=== PATIENT | male | born 1965 | race Caucasian/White ===

== ENCOUNTER 2019-04-30 11:23 | Inpatient (IN) ==
[2019-04-25 12:29] LABS: INR 0.8 (0.9-1.1); Prothrombin Time 11.6 sec (11.9-14.5)
[2019-04-25 12:36] LABS: Basophils # (Auto) 0 K/mcL (0.0-0.3); Basophils % (Auto) 0.4 % (0.0-2.0); Eosinophils # (Auto) 0.1 K/mcL (0.0-0.7); Eosinophils % (Auto) 0.8 % (0.0-7.0); Granulocytes % (Auto) 81.1 % (38.0-78.0); Hematocrit 40.1 % (41.0-55.0); Hemoglobin 13.4 g/dL (13.5-16.5); Lymphocytes # (Auto) 1.1 K/mcL (1.5-4.8); Lymphocytes % (Auto) 12.2 % (15.5-49.0); Mean Corpuscular HGB Conc 33.5 g/dL (31.0-36.0); Mean Platelet Volume 7.3 fL (7.4-10.4); Monocytes # (Auto) 0.5 K/mcL (0.1-0.9); Monocytes % (Auto) 5.5 % (1.0-12.0); Platelet Count 233 K/mcL (140-440); RBC 4.13 M/mcL (4.50-5.90); Red Cell Distribution Width 13.1 % (11.5-14.5); WBC 9.1 K/mcL (4.5-11.0)
[2019-04-25 12:44] LABS: Appearance,Urine CLEAR; Bilirubin,Urine NEG (NEG); Color,Urine YELLOW; Glucose,Urine (UA) NEGATIVE (NEG); Ketones,Urine NEG (NEG); Leukocyte Esterase,Urine NEG /uL (NEG); Nitrate,Urine NEG (NEG); Protein,Urine NEG (NEG); Specific Gravity,Urine 1.012 (1.000-1.035); Urine Blood NEG mg/dL (<0.03); Urobilinogen,Urine NEG (NEG)
[2019-04-25 12:46] LABS: Blood Urea Nitrogen 23 mg/dl (6-20); Calcium 10.1 mg/dl (8.6-10.4); Carbon Dioxide 26 mmol/L (22-30); Chloride 103 mmol/L (96-108); Glomerular Filtration Rate 57; Glucose 109 mg/dL (70-105)
[~2019-04-30 11:23] MED LIST: 0.9 % SODIUM CHLORIDE 9 ML, KETOROLAC 30 MG, ROPIVACAINE HCL/PF 49.5 ML, EPINEPHrine 0.... IJ SCH; ACETAMINOPHEN 500 MG TABLET PO SCH; CELECOXIB 200 MG CAPSULE PO SCH; GABAPENTIN 300 MG CAPSULE PO SCH; ceFAZolin 2 GM in DEXTROSE 5% IN WATER 50 ML IV SCH; oxyCODONE 10 MG TAB.ER.12H PO SCH
[2019-04-30] MEDS ORDERED: SCOPOLAMINE 1 PATCH PATCH TOPICAL PRN (11:30)
[2019-04-30] MEDS ORDERED: IPRATROPIUM/ALBUTEROL 3 ML AMPUL.NEB NEB PRN ×2 (11:30→14:50)
[2019-04-30] MEDS ORDERED: ROPIVACAINE HCL/PF 30 ML VIAL IJ ONE (14:00)
[2019-04-30] MEDS ORDERED: DEXAMETHASONE 10 MG/ML VIAL IV ONE (14:00)
[2019-04-30] MEDS ORDERED: TRANEXAMIC ACID 1,000 MG/10 ML VIAL IV ONE ×2 (14:00→14:15)
[2019-04-30] MEDS ORDERED: MIDAZOLAM 2 MG/2 ML VIAL IV ONE (14:00)
[2019-04-30] MEDS ORDERED: KETOROLAC 30 MG/ML VIAL IV ONE (14:00)
[2019-04-30] MEDS ORDERED: PHENYLEPHRINE 10 MG/ML VIAL IV ONE (14:00)
[2019-04-30] MEDS ORDERED: ONDANSETRON 4 MG/2 ML VIAL IV ONE (14:00)
[2019-04-30] MEDS ORDERED: ETOMIDATE 20 MG/10 ML VIAL IV ONE (14:00)
[2019-04-30] MEDS ORDERED: LIDOCAINE HCL/PF 100 MG/5 ML SYRINGE IV ONE (14:00)
[2019-04-30] MEDS ORDERED: fentaNYL 100 MCG/2 ML VIAL IV ONE (14:00)
[2019-04-30] MEDS ORDERED: SUCCINYLCHOLINE 20 MG/ML ML IV ONE (14:00)
[2019-04-30] MEDS ORDERED: KETAMINE 100 MG/ML ML IV ONE (14:00)
[2019-04-30] MEDS ORDERED: GLYCOPYRROLATE 0.2 MG/ML VIAL IV ONE (14:00)
[2019-04-30] MEDS ORDERED: BENZOCAINE/MENTHOL 1 LOZENGE PO PRN ×2 (14:15→14:50)
[2019-04-30] MEDS ORDERED: FLEETS ADULT ENEMA PR PRN (14:15)
[2019-04-30] MEDS ORDERED: ACETAMINOPHEN 325 MG TABLET PO PRN (14:15)
[2019-04-30] MEDS ORDERED: KETOROLAC 15 MG/ML VIAL IV PRN (14:15)
[2019-04-30] MEDS ORDERED: HYDROmorphone 2 MG/ML VIAL IV PRN ×2 (14:15→14:50)
[2019-04-30] MEDS ORDERED: TEMAZEPAM 15 MG CAPSULE PO PRN (14:15)
[2019-04-30] MEDS ORDERED: MAGNESIUM HYDROXIDE 30 ML ORAL.SUSP PO PRN (14:15)
[2019-04-30] MEDS ORDERED: ONDANSETRON 4 MG/2 ML VIAL IV PRN (14:15)
[2019-04-30] MEDS ORDERED: POLYETHYLENE GLYCOL 3350 17 GM PACKET PO PRN (14:15)
[2019-04-30] MEDS ORDERED: BISACODYL 10 MG SUPP.RECT PR PRN (14:15)
[2019-04-30] MEDS ORDERED: DOCUSATE SODIUM 250 MG PO PRN (14:18)
[2019-04-30] MEDS ORDERED: oxyCODONE HCL 5 MG TABLET PO PRN (14:18)
[2019-04-30] MEDS ORDERED: GENTAMICIN SULFATE 800 MG/20 ML VIAL IR ONE (14:41)
[2019-04-30] MEDS ORDERED: PROMETHAZINE 25 MG/ML VIAL IM PRN (14:50)
[2019-04-30] MEDS ORDERED: MEPERIDINE 25 MG/ML SYRINGE IV PRN (14:50)
[2019-04-30] MEDS ORDERED: LACTATED RINGERS 250 ML IV PRN (14:50)
[2019-04-30] MEDS ORDERED: METOPROLOL TARTRATE 5 MG/5 ML VIAL IV PRN (14:50)
[2019-04-30] MEDS ORDERED: MEPERIDINE 50 MG/ML INJECTION IM PRN (14:50)
[2019-04-30] MEDS ORDERED: FLUMAZENIL 0.1 MG/ML ML IV PRN (14:50)
[2019-04-30] MEDS ORDERED: METHOCARBAMOL 1,000 MG/10 ML VIAL IV PRN (14:50)
[2019-04-30] MEDS ORDERED: LABETALOL 5 MG/ML ML IV PRN (14:50)
[2019-04-30] MEDS ORDERED: NALOXONE HCL 0.4 MG/ML VIAL IV PRN (14:50)
[2019-04-30] MEDS ORDERED: LACTATED RINGERS 1,000 ML IV SCH (15:00)
--- NOTE | 2019-04-30 15:17 | Brief Operative Note ---
Date of procedure: 04/30/19 Pre-op diagnosis: left shoulder djd severe Post-op diagnosis: same Procedure: left total shoulder reverse Grafts/Implants: Yes Anesthesia: GETA Surgeon: Sylvester Garcia Manager Eligibility: Praveen Zarate Estimated blood loss (cc): 100 Specimens Removed/Pathology: none sent Condition: stable Disposition: PACU
--- NOTE | 2019-04-30 15:36 | Operative Note ---
DATE OF OPERATION: 04/30/2019 PREOPERATIVE DIAGNOSIS: Left shoulder rotator cuff arthropathy, severe. POSTOPERATIVE DIAGNOSIS: Left shoulder rotator cuff arthropathy, severe. PROCEDURE: Left reverse total shoulder. SURGEON: Sylvester Garcia M.D. PAPER TWISTER: Praveen Zarate PA-C. The PA's assistance was required for the safe and efficient completion of the entire case. This provider's expertise and technical skill were required throughout the case. The PA assisted with preoperative coordination, intraoperative retraction, wound closure, dressing and splint application, as well as postoperative documentation and care coordination. ANESTHESIA: General LMA anesthesia. COMPLICATIONS: None. DESCRIPTION OF PROCEDURE: The patient was brought to the operating room. Preop consent form was confirmed by initials, consent form, and x-rays. Once confirmed and timeout performed, preop antibiotics and tranexamic acid given. We then made a deltopectoral approach to the arm. Through this we evaluated all the structures of the shoulder. The subscap was intact. Supraspinatus and infraspinatus were torn and teres minor was intact. The biceps tendon had been torn and a severe large rotator cuff retracted tear. With these findings we proceeded with the case, releasing the subscap, dislocated the humeral head anteriorly, and then made our neck cut. This was subluxed posteriorly and then we reamed the acetabulum after removing the labrum. We reamed up to the size for a 40 mm ball, releasing the capsule in a 360-degree capsular release. We placed a 32 mm central screw. Peripheral screws measured 36, 32, and 32. All fixed and locked into the plate very nicely. We placed a 36 mm glenosphere with 2 mm of offset, 2 mm of eccentricity. Once this was done, we then prepared the humeral side. This was broached up for 11 stem. The trial confirmed that this was equally stable. We then placed a cementless stem with antibiotic impregnated cement distally into the stem, porous ingrowth proximally, and then we placed a standard thickness poly. This was reduced, had full range of motion, very stable throughout the arc of motion. We irrigated thoroughly and closed the interval with Stratafix, closed the skin with Stratafix and adhesive closure. A DonJoy sling was fitted and given to the patient. The patient tolerated this well. Blood loss was about 100 mL. RENÉE:lucian Job ID: [id number] Doc ID: [id number] Sylvester Garcia MD
--- NOTE | 2019-04-30 15:43 | Discharge Summary ---
Ortho Discharge - TSA - Patient Instructions Diet: Regular Diet Activity: activity as tolerated, weight bearing as tolerated Total Shoulder Protocol: Leave immobilizer in place except for bathing and ROM. Abduction pillow. Continue to wear sling until seen by physician. Codman Pendulum : These exercises use momentum produced by your body to move your shoulder joint. Bend your knees and shift your weight to your front leg, then back, allowing your arm to swing in the same directions. Using the same technique, alternately shift your weight between your right and left legs, allowing your arm to swing from side to side. These exercises are also performed in counterclockwise and clockwise circular motions. Typically these exercises are performed several times per day, for a set number repetitions or minutes, such as 20 times in a row or 5 minutes at a time. Dressing Care: May shower in 2 days - Follow Up Plan Follow Up Appointments: Praveen Zarate PA-C [Physician Professor Of Floriculture] - 05/15/19 8:10 am Disposition: Home, Self-Care Prognosis: Good Rehab Potential: Good I certify that the patient requires SNF services: No Overall status at discharge: patient is progressing back to baseline - Orders For Discharge Prescriptions: Docusate Sodium [Colace] 100 mg PO BID #60 cap Transmission Status: Pending to [facility] oxyCODONE/APAP [Percocet 5-325 mg] 1 - 2 tab PO Q4HP PRN #75 tab PRN Reason: Pain Level 3-6 Prescription Printed
[2019-04-30] MEDS: fentaNYL 100 MCG/2 ML VIAL IV PRN ×6 (15:49→16:07)
[2019-04-30] MEDS: TACROLIMUS 1 MG CAPSULE PO SCH ×2 (17:56→22:08)
[2019-04-30] MEDS: LACTATED RINGERS 1,000 ML IV SCH ×2 (17:57→23:45)
[2019-04-30] MEDS: lamoTRIgine 100 MG TABLET PO SCH (18:05)
--- NOTE | 2019-04-30 18:37 | XRay Report ---
CLINICAL INFORMATION: Post-Op Total Shoulder COMPARISON: None. FINDINGS: Total shoulder prostheses is anatomically aligned. No osseous abnormality. Soft tissue swelling seen IMPRESSION: Negative Interpreted and Authenticated by: Gopal Patel 04/30/19
[2019-04-30] MEDS ORDERED: PRAVASTATIN 20 MG TABLET PO SCH (21:00)
[2019-04-30] MEDS ORDERED: GABAPENTIN 300 MG CAPSULE PO SCH (21:00)
[2019-04-30] MEDS ORDERED: SIMVASTATIN 10 MG TABLET PO SCH (21:00)
[2019-04-30] MEDS ORDERED: SENNOSIDES 1 TABLET PO SCH (21:00)
[2019-04-30] MEDS: DOCUSATE SODIUM 100 MG CAPSULE PO SCH (22:08)
[2019-04-30] MEDS: morphine 15 MG TAB.SR.12H PO SCH (22:09)
[2019-04-30] MEDS: TAMSULOSIN 0.4 MG CAPSULE PO SCH (22:09)
[2019-04-30] MEDS: ceFAZolin 1 GM VIAL IV SCH (22:09)
[2019-04-30] MEDS: 0.9 % SODIUM CHLORIDE 10 ML SYRINGE IV SCH (22:09)
[2019-04-30] MEDS: MYCOPHENOLATE 250 MG CAPSULE PO SCH (22:53)
[2019-04-30] MEDS: oxyCODONE/APAP 5/325MG TABLET PO PRN (23:42)
[2019-05-01] MEDS: oxyCODONE/APAP 5/325MG TABLET PO PRN ×2 (03:27→10:36)
[2019-05-01] MEDS: ceFAZolin 1 GM VIAL IV SCH (06:08)
[2019-05-01] MEDS: lamoTRIgine 100 MG TABLET PO SCH (06:08)
[2019-05-01] MEDS: 0.9 % SODIUM CHLORIDE 10 ML SYRINGE IV SCH (06:09)
[2019-05-01] MEDS ORDERED: LEVOTHYROXINE 88 MCG TABLET PO SCH (07:30)
[2019-05-01] MEDS ORDERED: predniSONE 5 MG TABLET PO SCH (08:00)
[2019-05-01] MEDS: MYCOPHENOLATE 250 MG CAPSULE PO SCH (08:24)
[2019-05-01] MEDS: TAMSULOSIN 0.4 MG CAPSULE PO SCH (08:24)
[2019-05-01] MEDS: morphine 15 MG TAB.SR.12H PO SCH (08:25)
[2019-05-01] MEDS: DOCUSATE SODIUM 100 MG CAPSULE PO SCH (08:25)
[2019-05-01] MEDS: TACROLIMUS 1 MG CAPSULE PO SCH (08:32)
[2019-05-01] MEDS ORDERED: MULTIVIT,THER IRON,CA,FA & MIN 1 TABLET PO SCH (09:00)
[2019-05-01] MEDS ORDERED: ASCORBIC ACID 500 MG TABLET PO SCH (09:00)
[2019-05-01] MEDS ORDERED: VITAMIN D3 1,000 UNIT TABLET PO SCH (09:00)
[2019-05-01] MEDS ORDERED: FINASTERIDE 5 MG TABLET PO SCH (09:00)
[2019-05-01] MEDS ORDERED: CALCIUM (OYSTER SHELL) 500 MG TABLET PO SCH (09:00)
[2019-05-01] MEDS ORDERED: GABAPENTIN 300 MG CAPSULE PO SCH (09:00)
[2019-05-01] MEDS: LACTATED RINGERS 1,000 ML IV SCH (10:37)
== END 2019-05-01 10:48 | disposition home or self-care (01) | DRG 483 ==
LOC: MEDSUR 11:23
PROVIDERS: ADMIT Orthopaedic Surgery; ATTEND Orthopaedic Surgery

== ENCOUNTER 2019-08-17 04:53 | Inpatient (IN) ==
[2019-08-08 19:22] LABS: Appearance,Urine CLEAR; Bilirubin,Urine NEG (NEG); Color,Urine YELLOW; Culture Indicated,Urine NO; Glucose,Urine (UA) NEGATIVE (NEG); Ketones,Urine NEG (NEG); Leukocyte Esterase,Urine NEG /uL (NEG); Nitrate,Urine NEG (NEG); Protein,Urine NEG (NEG); Specific Gravity,Urine 1.015 (1.000-1.035); Urine Blood NEG mg/dL (<0.03); Urobilinogen,Urine NEG (NEG)
[2019-08-08 20:53] LABS: Basophils # (Auto) 0.06 K/mcL (0.00-0.30); Basophils % (Auto) 0.5 % (0.0-2.0); Eosinophils # (Auto) 0.13 K/mcL (0.00-0.70); Eosinophils % (Auto) 1.2 % (0.0-7.0); Granulocytes % (Auto) 76.1 % (38.0-78.0); Hematocrit 42.2 % (40.1-51.0); Hemoglobin 14.4 g/dL (13.7-17.5); Lymphocytes # (Auto) 1.73 K/mcL (1.50-4.80); Lymphocytes % (Auto) 15.4 % (15.5-49.0); Mean Cell Volume 95.7 fL (80.0-100.0); Mean Corpuscular HGB Conc 34.1 g/dL (31.0-36.0); Mean Platelet Volume 9.8 fL (7.4-10.4); Monocytes # (Auto) 0.77 K/mcL (0.10-0.90); Monocytes % (Auto) 6.8 % (1.0-12.0); Platelet Count 256 K/mcL (140-440); RBC 4.41 M/mcL (4.63-6.08); Red Cell Distribution Width 12.1 % (11.5-14.5); WBC 11.3 K/mcL (4.50-11.00)
[2019-08-08 21:04] LABS: Estimated Average Glucose(eAG) 123 mg/dL; Hemoglobin A1C 5.9 % HGB (4.0-6.0)
[2019-08-08 21:07] LABS: INR 0.8 (0.9-1.1); Prothrombin Time 11.6 sec (11.9-14.5)
[2019-08-08 21:21] LABS: Blood Urea Nitrogen 34 mg/dl (6-20); Calcium 10.6 mg/dl (8.6-10.4); Carbon Dioxide 24 mmol/L (22-30); Chloride 99 mmol/L (96-108); Glomerular Filtration Rate 48; Glucose 94 mg/dL (70-105)
[2019-08-17] MEDS ORDERED: SCOPOLAMINE 1 PATCH PATCH TOPICAL PRN (05:00)
[2019-08-17] MEDS ORDERED: IPRATROPIUM/ALBUTEROL 3 ML AMPUL.NEB NEB PRN ×2 (05:00→09:18)
[2019-08-17] MEDS ORDERED: GABAPENTIN 300 MG CAPSULE PO SCH ×2 (06:00→21:00)
[2019-08-17] MEDS ORDERED: ceFAZolin 2 GM in DEXTROSE 5% IN WATER 50 ML IV SCH (06:00)
[2019-08-17] MEDS ORDERED: CELECOXIB 200 MG CAPSULE PO SCH (06:00)
[2019-08-17] MEDS ORDERED: ACETAMINOPHEN 500 MG TABLET PO SCH (06:00)
[2019-08-17] MEDS ORDERED: oxyCODONE 10 MG TAB.ER.12H PO SCH (06:00)
[2019-08-17] MEDS ORDERED: KETAMINE 100 MG/ML ML IV ONE (07:35)
[2019-08-17] MEDS ORDERED: BUPRENORPHINE HCL 0.3 MG/ML ML IM ONE (07:35)
[2019-08-17] MEDS ORDERED: PROPOFOL 200 MG/20 ML VIAL IV ONE (07:35)
[2019-08-17] MEDS ORDERED: ROPIVACAINE HCL/PF 30 ML VIAL IJ ONE (07:35)
[2019-08-17] MEDS ORDERED: PHENYLEPHRINE 10 MG/ML VIAL IV ONE (07:35)
[2019-08-17] MEDS ORDERED: ROCURONIUM 10 MG/ML ML IV ONE (07:35)
[2019-08-17] MEDS ORDERED: TRANEXAMIC ACID 1,000 MG/10 ML VIAL IV ONE (07:35)
[2019-08-17] MEDS ORDERED: MIDAZOLAM 2 MG/2 ML VIAL IV ONE (07:35)
[2019-08-17] MEDS ORDERED: GLYCOPYRROLATE 0.2 MG/ML VIAL IV ONE (07:35)
[2019-08-17] MEDS ORDERED: LIDOCAINE HCL/PF 100 MG/5 ML SYRINGE IV ONE (07:35)
[2019-08-17] MEDS ORDERED: fentaNYL 100 MCG/2 ML VIAL IV ONE (07:35)
[2019-08-17] MEDS ORDERED: DEXAMETHASONE 10 MG/ML VIAL IV ONE (07:35)
[2019-08-17] MEDS ORDERED: SUGAMMADEX SODIUM 200 MG/2 ML VIAL IV ONE (07:35)
[2019-08-17] MEDS ORDERED: ONDANSETRON 4 MG/2 ML VIAL IV ONE (07:35)
[2019-08-17] MEDS ORDERED: GENTAMICIN SULFATE 800 MG/20 ML VIAL IR ONE (08:00)
[2019-08-17] MEDS ORDERED: ONDANSETRON 4 MG/2 ML VIAL IV PRN ×2 (08:42→09:18)
[2019-08-17] MEDS ORDERED: MAGNESIUM HYDROXIDE 30 ML ORAL.SUSP PO PRN (08:42)
[2019-08-17] MEDS ORDERED: FLEETS ADULT ENEMA PR PRN (08:42)
[2019-08-17] MEDS ORDERED: BENZOCAINE/MENTHOL 1 LOZENGE PO PRN (08:42)
[2019-08-17] MEDS ORDERED: BISACODYL 10 MG SUPP.RECT PR PRN (08:42)
[2019-08-17] MEDS ORDERED: ACETAMINOPHEN 325 MG TABLET PO PRN (08:42)
[2019-08-17] MEDS ORDERED: POLYETHYLENE GLYCOL 3350 17 GM PACKET PO PRN (08:42)
[2019-08-17] MEDS ORDERED: TRANEXAMIC ACID 1,000 MG/10 ML VIAL IV SCH (08:42)
--- NOTE | 2019-08-17 08:42 | Brief Operative Note ---
Date of procedure: 08/17/19 Pre-op diagnosis: Right rca Post-op diagnosis: same Procedure: Right reverse tsa and hardware removal Grafts/Implants: Yes Anesthesia: GETA Surgeon: Sylvester Garcia Pipe Cutter: Praveen Zarate Estimated blood loss (cc): 50 Specimens Removed/Pathology: none sent Condition: stable Disposition: PACU
[2019-08-17] MEDS ORDERED: DOCUSATE SODIUM 250 MG PO PRN (08:45)
--- NOTE | 2019-08-17 09:00 | Operative Note ---
DATE OF OPERATION: 08/17/2019 PREOPERATIVE DIAGNOSIS: Right shoulder rotator cuff arthropathy. POSTOPERATIVE DIAGNOSIS: Right shoulder rotator cuff arthropathy. PROCEDURE: Right reverse total shoulder with hardware removal. SURGEON: Sylvester Garcia MD RECEIVING ROOM CLERK: Praveen Zarate PA-C. This provider's expertise and technical skill were required throughout the case. The VIDHI assisted with preoperative coordination, intraoperative retraction, wound closure, dressing and splint application, as well as postoperative documentation and care coordination. ANESTHESIA: General LMA anesthesia. COMPLICATIONS: None. DESCRIPTION OF PROCEDURE: The patient was brought to the operating room and put to sleep with general LMA anesthesia. Once asleep, the patient had the right arm sterilely prepped and draped in the usual sterile fashion. He was sat in a beach chair position and a timeout was performed confirming the operative site by initials, consent form and x-rays. Once this was done, we confirmed that the patient did receive tranexamic acid and preoperative antibiotics, 2 grams of Ancef. Once done, we then proceeded with a deltopectoral approach, exposing the shoulder. This showed severe arthritis. After making an incision through the deltopectoral interval, this showed a massive rotator cuff tear. The patient had a titanium rotator cuff anchor hardware removed from the greater tuberosity. This was removed with the sutures intact and without any sign of infection. We released the subscap and dislocated the humeral head and made our neck cut at 20 degrees of retroversion. Once this was done, we were able to place a protective plate and subluxed the head posteriorly. Once done, we were able to perform a 360 degree capsular release around the glenoid, released any remnants of the biceps which appeared to have already been removed. We placed a central guidewire and then reamed up for the metaglene. The metaglene was placed with a central screw measuring 32 mm in length, 6.5 screw locked the baseplate and then we placed three additional screws, which measured 32, 28 and 36. These locked into place, and a 32 mm glenosphere with 2 mm of eccentricity and 2 mm of offset was tapped into place. We broached up to the size 12, trialed the size 12 with a standard poly and then a +2 liner. The +2 was the most appropriate for tension. We then implanted a size 12 stem with a small amount of antibiotic impregnated cement distally to help secure it to his soft bone. Once done, we then tapped and a +2 mm poly liner and this locked into place. This gave excellent fixation. We then reduced the shoulder and irrigated with pulse lavage, closed the deltopectoral interval with 2-0 Vicryl. Stratafix was used subcutaneous and adhesive closure on the skin. The patient tolerated this well. A DonJoy sling was fitted and given at the end of the case. Amended [facility]. [facility] Addendum #2: After making the bony cuts, we were able to identify anchor. The anchor was removed using a rongeur. We irrigated the area without difficulty. Amended report. [facility] RBH:delfina Job ID: [id number] Doc ID: [id number] Sylvester Garcia MD
[2019-08-17] MEDS ORDERED: METHOCARBAMOL 1,000 MG/10 ML VIAL IV PRN (09:18)
[2019-08-17] MEDS ORDERED: fentaNYL 100 MCG/2 ML VIAL IV PRN (09:18)
[2019-08-17] MEDS ORDERED: MEPERIDINE 25 MG/ML SYRINGE IV PRN (09:18)
[2019-08-17] MEDS ORDERED: LACTATED RINGERS 1,000 ML IV SCH (09:30)
--- NOTE | 2019-08-17 09:43 | XRay Report ---
HISTORY: Postop right shoulder arthroplasty FINDINGS: There is a well-positioned reverse right total shoulder prosthesis. No fracture is present and there are no abnormal soft tissue calcifications around the joint. Lung volumes are small and there may be some atelectasis in the right lower lobe. IMPRESSION: Well-positioned right shoulder prosthesis Interpreted and Authenticated by: Ezekiel Hyatt 08/17/19
[2019-08-17] MEDS: HYDROmorphone 2 MG/ML VIAL IV PRN ×4 (10:20→21:18)
[2019-08-17] MEDS: CALCIUM CARBONATE 500 MG TAB.CHEW PO SCH (10:41)
[2019-08-17] MEDS: ASPIRIN 81 MG TAB.CHEW PO SCH (11:26)
[2019-08-17] MEDS: DOCUSATE SODIUM 100 MG CAPSULE PO SCH ×2 (11:27→20:11)
[2019-08-17] MEDS: MULTIVIT,THER IRON,CA,FA & MIN 1 TABLET PO SCH (11:28)
[2019-08-17] MEDS: TAMSULOSIN 0.4 MG CAPSULE PO SCH ×2 (11:28→20:12)
[2019-08-17] MEDS: MYCOPHENOLATE MOFETIL 1000 MG PO SCH ×2 (11:29→20:26)
[2019-08-17] MEDS: TACROLIMUS 1 MG CAPSULE PO SCH ×2 (11:30→20:40)
[2019-08-17] MEDS: FINASTERIDE 5 MG TABLET PO SCH (11:30)
[2019-08-17] MEDS: ASCORBIC ACID 500 MG TABLET PO SCH (11:31)
[2019-08-17] MEDS: VITAMIN D3 1,000 UNIT TABLET PO SCH (11:32)
[2019-08-17] MEDS: 0.9 % SODIUM CHLORIDE 10 ML SYRINGE IV SCH (16:16)
[2019-08-17] MEDS: ceFAZolin 1 GM VIAL IV SCH (16:27)
[2019-08-17] MEDS: lamoTRIgine 100 MG TABLET PO SCH (17:43)
[2019-08-17] MEDS: morphine 30 MG TAB.SR.12H PO SCH ×2 (18:44→20:27)
[2019-08-17] MEDS: KETOROLAC 15 MG/ML VIAL IV PRN (18:52)
[2019-08-17] MEDS: oxyCODONE/APAP 5/325MG TABLET PO PRN (20:10)
[2019-08-17] MEDS: LACTATED RINGERS 1,000 ML IV SCH ×2 (20:21→20:22)
[2019-08-17] MEDS ORDERED: SENNOSIDES 1 TABLET PO SCH (21:00)
[2019-08-17] MEDS ORDERED: TEMAZEPAM 15 MG CAPSULE PO PRN (21:00)
[2019-08-17] MEDS ORDERED: SIMVASTATIN 10 MG TABLET PO SCH (21:00)
[2019-08-18] MEDS: ceFAZolin 1 GM VIAL IV SCH
[2019-08-18] MEDS: oxyCODONE/APAP 5/325MG TABLET PO PRN ×2 (00:01→04:16)
[2019-08-18] MEDS: HYDROmorphone 2 MG/ML VIAL IV PRN (02:51)
[2019-08-18] MEDS: KETOROLAC 15 MG/ML VIAL IV PRN (02:52)
[2019-08-18] MEDS: LACTATED RINGERS 1,000 ML IV SCH (03:30)
[2019-08-18] MEDS: 0.9 % SODIUM CHLORIDE 10 ML SYRINGE IV SCH ×2 (05:29)
[2019-08-18] MEDS: lamoTRIgine 100 MG TABLET PO SCH (06:21)
[2019-08-18] MEDS ORDERED: LEVOTHYROXINE 88 MCG TABLET PO SCH (07:30)
[2019-08-18] MEDS: DOCUSATE SODIUM 100 MG CAPSULE PO SCH (07:37)
[2019-08-18] MEDS: CALCIUM CARBONATE 500 MG TAB.CHEW PO SCH (07:37)
[2019-08-18] MEDS: TAMSULOSIN 0.4 MG CAPSULE PO SCH (07:38)
[2019-08-18] MEDS: VITAMIN D3 1,000 UNIT TABLET PO SCH (07:38)
[2019-08-18] MEDS: morphine 30 MG TAB.SR.12H PO SCH (07:38)
[2019-08-18] MEDS: ASCORBIC ACID 500 MG TABLET PO SCH (07:39)
[2019-08-18] MEDS: FINASTERIDE 5 MG TABLET PO SCH (07:39)
[2019-08-18] MEDS: MULTIVIT,THER IRON,CA,FA & MIN 1 TABLET PO SCH (07:39)
[2019-08-18] MEDS: ASPIRIN 81 MG TAB.CHEW PO SCH (07:39)
[2019-08-18] MEDS: TACROLIMUS 1 MG CAPSULE PO SCH (07:40)
[2019-08-18] MEDS ORDERED: MYCOPHENOLATE 250 MG CAPSULE PO SCH (08:00)
[2019-08-18] MEDS ORDERED: predniSONE 5 MG TABLET PO SCH (08:00)
[2019-08-18] MEDS ORDERED: FERROUS SULFATE 325 MG TABLET PO SCH (08:00)
[2019-08-18] MEDS ORDERED: GABAPENTIN 300 MG CAPSULE PO SCH (09:00)
--- NOTE | 2019-09-04 09:55 | Discharge Summary ---
Ortho Discharge - TSA - Patient Instructions Diet: Regular Diet Activity: activity as tolerated, weight bearing as tolerated Total Shoulder Protocol: Leave immobilizer in place except for bathing and ROM. Abduction pillow. Continue to wear sling until seen by physician. Codman Pendulum : These exercises use momentum produced by your body to move your shoulder joint. Bend your knees and shift your weight to your front leg, then back, allowing your arm to swing in the same directions. Using the same technique, alternately shift your weight between your right and left legs, allowing your arm to swing from side to side. These exercises are also performed in counterclockwise and clockwise circular motions. Typically these exercises are performed several times per day, for a set number repetitions or minutes, such as 20 times in a row or 5 minutes at a time. Dressing Care: May shower in 2 days Patient Education: Oxycodone, Rapid Release (By mouth), Shoulder Arthroplasty (DC) Additional Instructions: Discharge Instructions: Do the exercises at home that physical therapy gave you. Take your prescription, photo ID, insurance cards, and current medication list with you to your first physical therapy appointment. Wear comfortable clothing for your physical therapy. If you do not hear from [facility] ([phone]) by Tuesday af ternoon (08/19), please call them and get scheduled to start physical therapy. Use ice packs as directed, on for 20 minutes at a time, throughout the day. Ice and elevation will help with pain and swelling. Leave immobilizer in place except for bathing and ROM. NO weight bearing with right arm/hand. Abduction pillow. Continue to wear sling until seen by physician. Codman Pendulum : These exercises use momentum produced by your body to move your shoulder joint. Bend your knees and shift your weight to your front leg, then back, allowing your arm to swing in the same directions. Using the same technique, alternately shift your weight between your right and left legs, allowing your arm to swing from side to side. These exercises are also performed in counterclockwise and clockwise circular motions. Typically these exercises are performed several times per day, for a set number repetitions or minutes, such as 20 times in a row or 5 minutes at a time. You have Dermabond (a dressing with a mesh-like appearance), DO NOT remove mesh. Cover site daily with a new gauze dressing. You may start showering on post op day #2. The Dermabond dressing can get wet. Do not scrub dressing. Pat dry, then place new dry gauze (rewrap with LAUREEN dressing if you had a total knee). To avoid constipation while taking any narcotic pain medication, take an over the counter stool softener/laxative. Take your prescription to picking table worker any medication or equipment (such as walker, crutches, toilet riser or C.P.M.) Your prescriptions are with your discharge information. Some medications were electronically transmitted to your pharmacy of choice. If you have any questions or concerns call your orthopedic surgeon before going to the emergency room. [facility] has a irrigation equipment remover physician 24 hours per day/7 days per week and can be reached at [phone]. Call for fevers above 100.5 or pain not controlled by medication. - Follow Up Plan Follow Up Appointments: Praveen Zarate PA-C [Physician Solution Director] - 08/30/19 8:40 am Disposition: Home, Self-Care Care Plan Goals: This discharge packet is provided to you to help keep you informed about your care. We want to ensure you get everything you need when you go home. You will also be receiving a call from us in a few days to follow up with you and see how you are doing since your discharge. This gives us a chance to listen to any concerns you maybe experiencing since you were discharged or any additional needs you may have, as well as providing us feedback on your care experience. We strive to always provide excellent care and thank you for your feedback and for choosing [facility]. Prognosis: Good Rehab Potential: Good I certify that the patient requires SNF services: No Overall status at discharge: patient is progressing back to baseline - Orders For Discharge Additional Discharge Orders: Physical Therapy at Discharge - ABIEL Location: None Selected Toilet Riser Discharge Order Location: None Selected Walker Location: None Selected
== END 2019-08-18 08:30 | disposition home or self-care (01) | DRG 483 ==
LOC: MEDSUR 04:53
PROVIDERS: ADMIT Orthopaedic Surgery; ATTEND Orthopaedic Surgery